=== PATIENT | female | born 1995 | race Caucasian/White ===

== ENCOUNTER 2020-04-21 09:23 | Emergency (ER) | payer BC, SELFPAY ==
[2020-04-21 09:33] VITALS: BP 134/62; PULSE 73; RESP 18; TEMP 37.1; O2SAT 100
--- NOTE | 2020-04-21 09:37 | ED.GENADULT ---
HPI - General Adult General Chief complaint: Ear Stated complaint: Ear ache Time Seen by Provider: 04/21/20 09:38 Source: patient and RN notes reviewed Mode of arrival: ambulatory Limitations: no limitations History of Present Illness HPI narrative: This is a 24 years old female presented office for evaluation of left ear pain since yesterday.Right ear began to hurt today. Denies associated symptoms include stuffy nose, sinus congestion, cough, or fever. Denies sick contact. She took ibuprofen prior to arrival. Admits to recent swimming. Related Data Allergies Allergy/AdvReac Type Severity Reaction Status Date / Time No Known Allergies Allergy Verified 04/21/20 09:40 Review of Systems Review of Systems: Narrative: CONSTITUTIONAL: Denies fever, chills ENT: Denies rhinorrhea, congestion, sore throat. Reports both otalgia. CARDIOVASCULAR: Denies chest pain, palpitation RESPIRATORY: Denies dyspnea, wheezing, cough GASTROINTESTINAL: Denies abdominal pain, nausea, vomiting, diarrhea. SKIN: Denies rash MUSCULOSKELETAL: Denies acute back pain NEUROLOGIC: Denies lightheaded All other systems reviewed are negative, except as documented in HPI. PMFSH Comments At time of signature, I agree with nursing past medical, surgical, social and family history. There is no relevant family history pertinent to the presenting complaint. Exam Narrative: Exam Narrative: GENERAL: This is a well-nourished, well-developed patient, in no apparent distress. EYES: Sclera clear/white. Vision is grossly intact. EARS: External ears normal, bilateral auditory canal edematous with drainage with tragal tenderness noted in left ear; both TMs normal without perforation. Hearing grossly intact. NOSE: External nose normal with no obvious nasal discharge, nares without redness, no rhinorrhea. THROAT: Mucous membranes moist, posterior pharynx clear. NECK: Neck supple, non-tender without lymphadenopathy, masses or thyromegaly. CARDIOVASCULAR: Regular rate and rhythm without murmurs, gallops, or rubs. RESPIRATORY: Clear to auscultation. Breath sounds equal bilaterally. No wheezes, rales, or rhonchi. GASTROINTESTINAL: Abdomen soft, non-tender, nondistended. Bowel sounds are active. No hepato-splenomegaly, or palpable masses. No guarding. SKIN: warm, intact with no suspicious lesions or rash, good texture and turgor. NEURO: awake, alert, and oriented to person, place and time. There were no obvious focal neurologic abnormalities. Steady gait Shani Coma Scale Eye Opening: Spontaneous 4 Shani Coma Scale Motor: Obeys Commands 6 [place] Coma Scale Verbal: Oriented 5 Medical Decision Making MDM Narrative Medical decision making narrative: Discharge instructions reviewed with patient, as well as provided in writing per nursing staff. The instructions also include specific and strict return/GO TO THE ER as well as f/u information. All questions have been answered, and the patient deny any further questions with discharge and discharge plan. Differential Diagnosis Differential Diagnosis: Allergic Rhinitis, Upper respiratory cough syndrome, Pharyngitis, Sinusitis, Bronchitis, otitis media, viral URI Critical Care Time Critical Care Time Critical Care Time: No Discharge Plan Discharge Clinical Impression: Otitis externa Qualifiers: Otitis externa type: unspecified type Chronicity: acute Laterality: bilateral Qualified Code(s): H60.503 - Unspecified acute noninfective otitis externa, bilateral Patient Disposition: Home, Self-Care Condition: Stable Instructions: Antibiotic Form, Otitis Externa (DC) Additional Instructions: -Ear drops as directed for 7-10 days until the pain and swelling are gone. -When administer drug into the affected ear; make sure to lie down with the affected ear facing upward, massage the ear canal to help the drops reach the medial end of the canal, then remain in that position for at least 5 minutes. -Avoid using cotton tippe
== END 2020-04-21 09:45 | disposition home or self-care (01) ==
PROVIDERS: Emergency Provider Nurse Practitioner
DX: H60.503 Unspecified acute noninfective otitis externa, bilateral (principal)
CPT/HCPCS: 99213; G0463

== ENCOUNTER 2021-12-31 09:01 | Emergency (ER) | payer BC, SELFPAY ==
[2021-12-31 09:06] VITALS: BP 138/68; PULSE 72; RESP 16; TEMP 37.2; O2SAT 100
--- NOTE | 2021-12-31 09:20 | ED.SKABFB ---
HPI - Skin/Abscess/Foreign Bdy General Chief complaint: Skin/Abscess/Foreign Body Stated complaint: Rash Time Seen by Provider: 12/31/21 09:21 Source: patient Mode of arrival: ambulatory Limitations: no limitations History of Present Illness HPI narrative: 26-year-old female presented for complaint of all over body itch for about 1 week. She denies changes to lotion, soap, detergent, however she states she did change fragrance of her detergent. Denies lip, tongue, or throat itching/swelling. She has taken 2 doses of Benadryl since the onset. complaint: rash Related Data Home Medications Medication Instructions Recorded Confirmed levonorgestrel [Mirena] 1 device INTRAUTERINE ONCE 12/31/21 12/31/21 Allergies Allergy/AdvReac Type Severity Reaction Status Date / Time No Known Allergies Allergy Verified 12/31/21 09:35 Review of Systems Review of Systems: CONSTITUTIONAL: Denies body aches, fever, chills, or sweats. EYES: Denies visual changes, redness, or discharge. ENT: Denies rhinorrhea, congestion, sore throat, or otalgia. CARDIOVASCULAR: Denies chest pain, palpitations, or edema. RESPIRATORY: Denies cough or dyspnea. GASTROINTESTINAL: Denies abdominal pain, nausea, vomiting, or diarrhea. GENITOURINARY: Denies dysuria or hematuria. SKIN: endorses rash, itching MUSCULOSKELETAL: Denies back pain, joint pain, or myalgia. NEUROLOGIC: Denies headache, numbness, tingling, or weakness. PSYCH: Denies depression or anxiety. PMFSH Comments At time of signature, I have reviewed and agree with nursing past medical, surgical, social and family history unless otherwise noted. Please see nursing chart for further information. There is no relevant family history pertinent to the presenting complaint Exam Narrative: GENERAL: Well-appearing, well-nourished HEAD: Normocephalic, atraumatic. EYES: Pconjunctivae clear, and EOMI. ENT: Mucous membranes moist. Oropharynx without edema, erythema or lesions. NECK: Supple. No lymphadenopathy CHEST: Clear to auscultation. No respiratory distress. HEART: Regular rate and rhythm. SKIN: Warm, dry. Minimal skin colored raised papules to upper back and posterior upper arms. No urticaria, lesions or vesicles noted. NEURO: Alert and oriented x3. PSYCH: Normal mood and affect Course Course Emergency Course: Patient is aware of diagnosis, understands and agrees to treatment plan. Anticipatory guidance given. Patient agrees to follow-up as directed and is aware of reasons to seek care at the emergency department. Portions of this record may have been created with voice recognition software Level of Care: Express Care Visit Vital Signs Vital signs: Vital Signs Temperature 99 F 12/31/21 09:06 Pulse Rate 72 12/31/21 09:06 Respiratory Rate 16 12/31/21 09:06 Blood Pressure 138/68 12/31/21 09:06 Pulse Oximetry 100 12/31/21 09:06 Temperature 99 F 12/31/21 09:06 Pulse Rate 72 12/31/21 09:06 Respiratory Rate 16 12/31/21 09:06 Blood Pressure 138/68 12/31/21 09:06 Pulse Oximetry 100 12/31/21 09:06 Reviewed MDM - Skin/Abscess/Foreign Bdy MDM Narrative Medical decision making narrative: Does not appear at this time to be erythema multiforme, bullous, SJS, TEN; no evidence at this time to suggest RMSF, endocarditis or Lyme disease Patient looks well, nontoxic. Instructed patient to go to nearest ER immediately for any worsening symptoms including but not limited to: fever, spreading rash, pain, sore throat, headache, dizziness, chest pain, trouble breathing, or any symptoms concerning to the patient. Differential Diagnosis Differential diagnosis: Likely abscess of skin or subcutaneous tissue, urticaria, herpes zoster, cellulitis and contact dermatitis Discharge Plan Discharge Clinical Impression: Pruritus Patient Disposition: Home, Self-Care Condition: Stable Instructions: Antibiotic Form, Itchy Skin (ED) Additional Instructions: Wash wi
== END 2021-12-31 09:37 | disposition home or self-care (01) ==
PROVIDERS: Emergency Provider Nurse Practitioner Family
DX: L29.9 Pruritus, unspecified (principal)
CPT/HCPCS: 99213; G0463